=== PATIENT | female | born 1975 | race Two or more races ===

== ENCOUNTER → 2024-04-30 | Outpatient (CLI) | payer MEDICAID, SELFPAY ==
--- NOTE | 2024-04-30 14:30 | XR_ITS ---
Examination: Breast ultrasound, unilateral, right complete Date and time of exam: April 30 2024 1511 hours INDICATIONS: Lump in the right breast this month, history right breast sonogram August 12, 2023 suspicious mass 12:00 position right breast, nodule biopsied September 29, 2023, measuring 9 x 11 mm Technique: Real-time christianson scale ultrasonographic imaging performed right breast including all 4 quadrants as well as nipple retroareolar and axillary region. Findings: 9:00 oval mass 12 x 6 x 13 mm, breast biopsy marker, lobular margins IMPRESSION: BI-RADS Category 3: Probably benign findings One additional 6 month right breast sonogram follow-up is needed to document stability of nodule described above
--- NOTE | 2024-04-30 15:00 | XR_ITS ---
Examination: Diagnostic digital mammography, unilateral, right Computer aided detection 3-D breast Tomosynthesis, unilateral Date and time of exam: April 30, 2024 1536 hours INDICATIONS: Mammogram August 12, 2023 9:00 oval mass right breast indistinct margins 10 mm Technique: Nonmagnified MLO, CC views of the right breast have been obtained, reconstructed from 3-D Tomosynthesis images. R2 computer aided detection program utilized for evaluation of suspicious masses and/or abnormal calcifications. 3-D Tomosynthesis images obtained. Findings: The breast is heterogeneously dense, which may obscure small masses 14 mm oval mass on the right MLO view separate from the breast biopsy marker, 7.3 cm from the nipple Impression: BI-RADS category 0: Incomplete: Need additional imaging evaluation This patient should return for repeat right breast sonography with the radiologist in attendance
== END | disposition home or self-care (01) ==
LOC: CDIM 14:57
PROVIDERS: Referring Provider Nurse Practitioner Family; Visit Provider Nurse Practitioner Family
DX: N63.15 Unspecified lump in the right breast, overlapping quadrants (principal)
CPT/HCPCS: 76641; 77061; 77065; G0279

== ENCOUNTER → 2024-07-10 | Outpatient (CLI) | payer MEDICAID, SELFPAY ==
--- NOTE | 2024-07-10 11:30 | XR_ITS ---
Examination: Breast ultrasound, unilateral, right complete Date and time of exam: July 10, 2024 1205 hours INDICATIONS: Mammogram April 30, 2024 14 mm oval mass separate from the breast biopsy marker on the MLO view, 7.3 cm from the nipple Technique: Real-time christianson scale ultrasonographic imaging performed right breast including all 4 quadrants as well as nipple retroareolar and axillary region. Findings: 9:00 circumscribed nodule 10 x 7 mm 10:00 intramammary lymph node 11 x 8 mm IMPRESSION: BI-RADS Category 3: Probably benign findings Recommend 1 additional 6 month right breast sonogram follow-up to document stability of 9:00 nodule described above
== END | disposition home or self-care (01) ==
PROVIDERS: PCP Nurse Practitioner Family; Referring Provider Nurse Practitioner Family; Visit Provider Nurse Practitioner Family
DX: N63.15 Unspecified lump in the right breast, overlapping quadrants (principal)
CPT/HCPCS: 76641

== ENCOUNTER 2024-09-16 09:12 | Emergency (ER) | payer MEDICAID, SELFPAY ==
[2024-09-16 09:29] VITALS: BP 150/88; PULSE 64; RESP 18; TEMP 37.1; O2SAT 98; BMI 29.5
--- NOTE | 2024-09-16 09:41 | XR_ITS ---
Examination: CT abdomen and pelvis without contrast. Coronal 3-D reconstructions. Sagittal 2-D reconstructions. Date and time of exam:September 16, 2024 10:45 AM Comparison July 11, 2023 Indications: Right flank pain beginning 2 weeks ago CTDI: vol (mGy): 8.83 DLP: (mGycm): 453 Technique: Axial images of the abdomen have been obtained, 3 mm slice thickness Intravenous contrast material has not been administered. Low dose protocols were performed. One or more of the following dose reduction techniques were used; automated exposure control, adjustment of the mA and/or KV according to patient size, use of iterative reconstruction technique. Findings: Stable pulmonary nodule right lower lobe No visualized liver or splenic lesion Absent gallbladder No pancreatic mass No renal or ureteral calculi, no hydronephrosis Normal appendix Septated left pelvic cyst 5 cm Contracted urinary bladder Impression: No renal or ureteral calculi, no hydronephrosis Normal appendix Septated 5 cm left pelvic cyst, recommend pelvic sonography follow-up
--- NOTE | 2024-09-16 10:19 | PD.EDABDPN ---
ED Abdominal Pain RME/HPI General Chief Complaint: Abdominal Pain Stated complaint: RUQ ABD PAIN X 4DAYS Time seen by provider: 09/16/24 09:14 Arrival date/time: 09/16/24 09:12 This is a case of 48-year-old female who have history of cholecystectomy came in in the emergency room due to right-sided abdominal pain associated with nausea vomiting for 4 days worsening symptoms this patient decided to start consult here in the emergency room Source: patient Mode of arrival: ambulatory Limitations: no limitations Related Data Home Medications ?Medication ?Instructions ?Recorded ?Confirmed ibuprofen 800 mg tablet 800 mg PO DAILY PRN Pain 06/08/21 08/31/22 oxybutynin chloride 5 mg tablet 5 mg PO QDAY 06/08/21 08/31/22 pantoprazole 40 mg tablet,delayed 40 mg PO QDAY 06/08/21 08/31/22 release hydroxyzine HCl 10 mg tablet 10 mg PO HS 08/31/22 08/31/22 pentosan polysulfate sodium 100 mg 200 mg PO DAILY 08/31/22 08/31/22 capsule (Elmiron) Previous Rx's ?Medication ?Instructions ?Recorded diphenhydramine HCl 25 mg capsule 25 mg PO Q8H PRN allergic symptoms 10/01/22 (Benadryl) #30 caps ibuprofen 600 mg tablet 600 mg PO Q6H #30 tabs 10/01/22 ibuprofen 600 mg tablet 600 mg PO TID PRN pain #30 tabs 10/01/22 dicyclomine 20 mg tablet 20 mg PO TID PRN abdominal pain 09/16/24 #20 tabs ibuprofen 800 mg tablet 800 mg PO Q8H PRN pain #20 tabs 09/16/24 ondansetron 4 mg disintegrating 4 mg PO Q8H PRN nausea and 09/16/24 tablet vomiting #20 tabs Allergies Allergy/AdvReac Type Severity Reaction Status Date / Time codeine Allergy Severe Hives Verified 09/16/24 09:16 Review of Systems Review of Systems Systems Reviewed: All systems reviewed, normal except as documented Constitutional Constitutional: Reports system reviewed and no additional complaints, except as documented and Reports as per HPI ENT Ears, Nose, Mouth, and Throat: Denies dysphagia and Denies odynophagia Cardiovascular Cardiovascular: Reports system reviewed and no additional complaints, except as documented and Reports as per HPI Respiratory Respiratory: Reports system reviewed and no additional complaints, except as documented and Reports as per HPI Gastrointestinal Gastrointestinal: Reports system reviewed and no additional complaints, except as documented, Reports as per HPI, Reports abdominal pain, Denies belching, Denies bloating, Denies change in bowel habits, Denies change in stool character, Denies coffee ground emesis, Denies constipation, Denies cramping, Denies diarrhea, Denies dyspepsia, Denies dysphagia, Denies early satiety, Denies excessive flatus, Denies fecal incontinence, Denies heartburn, Denies hematemesis, Denies hematochezia, Denies loose stools, Denies melena, Reports nausea, Denies odynophagia, Denies tenesmus and Reports vomiting Genitourinary Genitourinary: Reports system reviewed and no additional complaints, except as documented and Reports as per HPI Musculoskeletal Musculoskeletal: Reports system reviewed and no additional complaints, except as documented and Reports as per HPI Neurologic Neurologic: Reports system reviewed and no additional complaints, except as documented and Reports as per HPI Past Medical History Past Medical History NEUROLOGIC: Negative Neurological Disorders or Seizures CARDIAC: Negative Cardiac Disorders, Congestive Heart Failure or Hypertension RESPIRATORY: Positive Pneumonia; Negative Chronic Obstructive Pulmonary Disease (COPD) or Asthma GASTROINTESTINAL: Positive Gastrointestinal Disorders, Gall Bladder Disease (CHOLECYSTECTOMY 2011), Hiatal Hernia and Gastroesophageal Reflux Disease GENITOURINARY: Positive Genitourinary Disorders (RENAL BIOPSY 11/08/18); Negative Renal Disease REPRODUCTIVE: Positive Previous Pregnancies () MUSCULOSKELETAL: Negative Musculoskeletal Disorders or Carpal Tunnel Syndrome ENDOCRINE: Negative Endocrine Disorders, Diabetes Mellitus Type 1 or Diabetes Mellitus Type 2 HEMATOLOGIC: Negative Blood Disorders, Anemia, Sickle Cell Disease or Clotting Problems PSYCHO/SOCIAL: Positive Anxiety OTHER HISTORY: Positive Hospitalization and Blood Transfusions; Negative Autoimmune Disease, Down Syndrome, Developmental Delay, Shingles, Falls, Blood Transfusion Reaction, Anesthesia Reactions, Organ Transplant, Chicken Pox or Cancer Family History FAMILY HISTORY: Positive Family Cardiac Disorders (MOTHER(HTN)) and Family Cancer (MOTHER(SKIN)/ SISTER(SKIN)); Negative Family Psychiatric Problems, Family Respiratory Disorders, Family Gastrointestinal Problems, Family Surgery or Family Anesthesia Reaction Surgical History SURGICAL: Positive Abdominal Surgery, Arthroscopy, Tubal Ligation (2011) and Section (X3); Negative Cardiac Surgery, Endocrine Surgery, Thyroidectomy, Ear Surgery, Nephrectomy, Neurologic Surgery, Brain Shunt, Mastectomy, Hysterectomy or Organ Transplant Social History SMOKING STATUS: Never smoker ED Exam General Limitations: Present no limitations General appearance: Present alert and in no apparent distress Head Head exam: Present atraumatic, normocephalic and normal inspection Eye Eye exam: Present normal appearance, PERRL and EOMI ENT ENT exam: Present normal exam, normal oropharynx and mucous membranes moist Neck Neck exam: Present normal inspection, full ROM and trachea midline Chest Chest inspection: Present normal inspection and symmetric chest wall rise Respiratory Respiratory exam: Present normal lung sounds bilaterally; Absent respiratory distress, wheezes, stridor, accessory muscle use or prolonged expiratory phase Cardiovascular Cardiovascular exam: Present regular rate, normal rhythm and normal heart sounds; Absent bradycardia, tachycardia, irregular rhythm or systolic murmur Abdominal Exam Abdominal exam: Present soft, tenderness (Mild to moderate tenderness right upper and right lower quadrant no guarding no rebound no rigidity) and normal bowel sounds; Absent distention, guarding, rebound, rigidity, diminished bowel sounds, hyperactive bowel sounds, hypoactive bowel sounds, organomegaly, trauma, incision, psoas sign, obturator sign, heel tap sign, Mccracken's sign, Rovsing's sign, tenderness at McBurney's Point, ascites or pulsatile mass Abdominal tenderness: Present RUQ, RLQ and mild Extremities Exam Extremities exam: Present normal inspection and full ROM Back Exam Back exam: Present normal inspection and full ROM Neurological Exam Neurological exam: Present alert, oriented X3, CN II-XII intact, normal gait and reflexes normal; Absent motor sensory deficit Psychiatric Psychiatric exam: Present normal affect and normal mood Skin Skin exam: Present warm, dry, intact and normal color Course Quality Measures none Orders Category Date Time Status CT abdomen pelvis wo con Stat Exams 09/16/24 09:41 Completed US pelvic complete Stat Exams 09/16/24 12:16 Completed CBC Stat Lab 09/16/24 10:04 Completed Comprehensive Metabolic Panel Stat Lab 09/16/24 10:04 Completed HCG Qualitative,Urine Stat Lab 09/16/24 10:20 Completed Lipase Stat Lab 09/16/24 10:04 Completed Urinalysis Stat Lab 09/16/24 10:20 Completed Ketorolac Inj [Toradol Inj] Med 09/16/24 14:04 Discontinued 30 mg IM X1 ONE Ondansetron Odt [Zofran Odt] Med 09/16/24 14:04 Discontinued 4 mg PO X1 ONE Vital Signs Vital signs: Vital Signs Temperature 98.8 F 09/16/24 09:29 Pulse Rate 64 09/16/24 09:29 Respiratory Rate 18 09/16/24 09:29 Blood Pressure 150/88 H 09/16/24 09:29 Pulse Oximetry (%) 98 09/16/24 09:29 Oxygen Delivery Method Room Air 09/16/24 09:29 Oxygen saturation is 98% in room air normal Abdominal Pain MDM MDM Narrative MDM Narrative:: This is a case of 48-year-old female who have history of cholecystectomy came in in the emergency room due to right-sided abdominal pain associated with nausea vomiting for 4 days worsening symptoms this patient decided to start consult here in the emergency room physical examination patient is awake alert oriented not in distress nontoxic looking patient is afebrile not tachycardic not tachypneic BP stable and nonhypoxic abdominal exam noted mild tenderness in the right upper and right lower quadrant no guarding no rebound no rigidity negative psoas negative straight or negative Rovsing's negative McBurney's negative Mccracken sign negative CVA tenderness blood test showed no leukocytosis no anemia kidney and liver function is normal no electrolyte imbalance lipase normal patient is not urinalysis normal CT scan showed a normal exam status postcholecystectomy normal appendix noted a pelvic cyst?ultrasound was ordered and noted to have patient have ovarian cyst on the left no signs and symptoms of ovarian torsion patient was given Toradol for pain and Zofran patient condition markedly improved abdominal pain is resolved patient will follow up with PCP in 2 days for reevaluation there is an incidental finding of pulmonary nodules this patient will follow-up with passenger car conductor for further evaluation and treatment and to rule out malignancy and patient will see OB patient care nursing assistant for ovarian cyst patient agreed with the treatment plan and discharge Patient was discharged with comfortable condition walking with stable gait. Patient verbalized no further complains explained diagnosis and answered patient question. Patient is comfortable with the proposed management plan including the need to follow up with his/her primary care physician and any specialist if applicable Discussed patient for any urgent condition or worsening sx, He/She needed to go to emergency room immediately or call 911. Patient acknowledge the responsibility to follow up as instructed and to monitor her/his symptoms. For any persistence of the symptoms for more than 3-5 days return precaution advised. Discussed the result of the test and was given printed discharge instruction Patient data External records reviewed:: [facility] previous records Clinical information provided by:: patient Social determinants that could affect healthcare access:: none Patient has the following chronic illnesses:: None How is presenting disease/condition affected by chronic disease/condition?: no chronic disease Evaluation data The following diagnostics were reviewed and interpreted by me:: lab results and radiology exam(s) Lab and/or radiology exams considered but not ordered:: Reviewed Interpretation Summary: Reviewed Medications / Prescriptions Medications or Prescriptions considered but not ordered:: Given Medication administrations:: Medication Administration History Discontinued Medications Ketorolac Tromethamine (Ketorolac Inj 60 Mg/2 Ml Vial) 30 mg IM X1 ONE Stop: 09/16/24 14:05 Ondansetron HCl (Ondansetron Odt 4 Mg Tabrap) 4 mg PO X1 ONE; Protocol Stop: 09/16/24 14:05 Given Consultations Consultation(s) initiated? (list below): No Diagnosis Differential diagnosis abdominal pain: abdominal pain, acute appendicitis and calculus of kidney Most likely diagnosis given after review of the tests above:: Ovarian cyst Admission Indicated Admission indicated?: not indicated Explain why admission is indicated or not indicated:: Not indicated Admission Request Was there a request for admission?: No Admission Attestation Admission request attestation: Not indicated Disposition Plan Disposition Plan: Discharge Discharge Attestation Discharge Attestation: The patient and all family members were given an opportunity to ask questions and understood the discharge instructions. Discharge instructions specifically effects, indications for sooner follow up or return to the emergency department, and the expected course of current diagnosis. Patient condition: Stable Discharge Plan Plan Patient Disposition: HOME (Self Care) Patient condition on transfer: Stable Prescriptions/Referrals Prescriptions/Med Rec: New ibuprofen 800 mg tablet 800 mg PO Q8H PRN (Reason: pain) Qty: 20 0RF dicyclomine 20 mg tablet 20 mg PO TID PRN (Reason: abdominal pain) Qty: 20 0RF ondansetron 4 mg tablet,disintegrating 4 mg PO Q8H PRN (Reason: nausea and vomiting) Qty: 20 0RF No Action ibuprofen 800 mg tablet 800 mg PO DAILY PRN (Reason: Pain) pantoprazole 40 mg tablet,delayed release (DR/EC) 40 mg PO QDAY oxybutynin chloride 5 mg tablet 5 mg PO QDAY Elmiron 100 mg capsule 200 mg PO DAILY hydroxyzine HCl 10 mg tablet 10 mg PO HS ibuprofen 600 mg tablet 600 mg PO TID PRN (Reason: pain) Qty: 30 0RF diphenhydramine HCl [Benadryl] 25 mg capsule 25 mg PO Q8H PRN (Reason: allergic symptoms) Qty: 30 0RF ibuprofen 600 mg tablet 600 mg PO Q6H Qty: 30 0RF Referrals: Katelyn Wren MD [Primary Care Provider] - In 1 week Problem List Clinical Impression: Abdominal pain, Ovarian cyst, Pulmonary nodule Patient/Caregiver Discharge Instructions Education Materials: Abdominal Pain, ED Ovarian Cyst, ED Pulmonary Nodule, Solitary Additional Instructions: Follow-up with your primary care physician in 2 days for reevaluation and to be referred to passenger car conductor for further evaluation and treatment of pulmonary nodule to rule out malignancy and to follow-up with the OB patient care nursing assistant for further evaluation and treatment of ovarian cyst worsening symptoms regardless of the symptoms persistence of the symptoms or any emergent concern return to the emergency room immediately or call 911 Print Language: Latvian Stand Alone Forms: Carla Award Info., Patient Portal Info Letter PA/OUTREACH CONSULTANT Supervising Physician PA/OUTREACH CONSULTANT Supervising Physician: dr alonzo
[2024-09-16 10:32] LABS: Basophils % (Auto) 1 % (0-2.5); Eosinophils # (Auto) 0.1 Thou/mm3 (0.0-0.5); Eosinophils % (Auto) 1 % (0-10); Hematocrit 40.4 % (36.0-46.0); Hemoglobin 13.9 g/dL (12.0-16.0); Immature Granulocytes % (Auto) 0 % (0-0); Immature Granulocytes Auto 0.02 Thou/mm3 (0.00-0.00); Lymphocytes # (Auto) 1.3 Thou/mm3 (1.0-4.8); Lymphocytes % (Auto) 22 % (10-50); Mean Corpuscular HGB Conc 34.4 g/dl (31.0-37.0); Mean Corpuscular Hemoglobin 30.4 pg (25.0-35.0); Mean Corpuscular Volume 88 fL (80-100); Monocytes # (Auto) 0.4 Thou/mm3 (0.0-0.8); Monocytes % (Auto) 8 % (0-12); Neutrophils # (Auto) 3.8 Thou/mm3 (1.8-7.7); Neutrophils % (Auto) 68 % (37-80); Nucleated Red Blood Cell % 0 /100 WBC (0); Platelet Count 222 Thou/mm3 (140-440); RDW Standard Deviation 38.7 fL (36.4-46.3); Red Blood Count 4.57 Miln/mm3 (4.00-5.20); White Blood Count 5.6 Thou/mm3 (3.6-11.0)
[2024-09-16 10:56] LABS: Collection Type, Urine Clean Catch
[2024-09-16 10:59] LABS: Alanine Aminotransferase 14 U/L (10-49); Albumin, Serum 4.7 gm/dL (3.5-5.0); Albumin/Globulin Ratio 1.7 (1.2-2.2); Alkaline Phosphatase 105 U/L (46-116); Anion Gap 9 (7-16); Aspartate Amino Transferase 17 U/L (0-34); BUN/Creatinine Ratio 11 Ratio (12-20); Blood Urea Nitrogen 8 mg/dL (9-23); Calcium 9.6 mg/dL (8.3-10.6); Calcium (Corrected) 9.6 mg/dL (8.5-10.1); Carbon Dioxide 25.4 mMol/L (20.0-31.0); Chloride 107 mMol/L (98-107); Creatinine (Component) 0.7 mg/dL (0.6-1.3); Estimated Creatinine Clearance 83.1 mL/min (>60); Globulin 2.7 gm/dL (2.3-3.5); Glucose 100 mg/dL (74-106); Lipase 25 U/L (12-53); Osmolality,Calculated 279 (275-295); Potassium 3.7 mMol/L (3.4-5.1); Sodium 141 mMol/L (136-145); Total Protein 7.4 gm/dL (5.7-8.2); eGFR > 60 See Note
[2024-09-16 11:04] LABS: Bilirubin,Urine Negative (Negative); Blood,Urine Negative (Negative); Clarity,Urine Clear (Clear/Hazy); Color,Urine Yellow (Lt Yel-Yel); Glucose, Urine Negative (Negative); Ketones,Urine Negative (Negative); Leukocyte Esterase,Urine Negative (Negative); Nitrite,Urine Negative (Negative); PH,Urine 6.5 (5.0-7.0); Protein,Urine Trace (Neg - Trace); RBC,Urine 1 /hpf (0-3); Specific Gravity,Urine 1.025 (1.001-1.035); Squamous Epithelial Cell,Urine 2 /hpf (0-5); Urobilinogen,Urine Negative mg/dL (0.0-1.0); WBC,Urine < 1 /hpf (0-5)
[2024-09-16 11:05] LABS: HCG Qualitative,Urine Negative
--- NOTE | 2024-09-16 12:16 | XR_ITS ---
Examination: Pelvic ultrasound, transabdominal, complete Technique: Transabdominal ultrasound of the pelvis performed using grayscale imaging Date and time of exam: September 16, 2024 1335 hrs. Indications: Pelvic pain beginning 2 weeks ago Findings: Absent uterus Right ovary not seen Left ovary 3.2 cm arterial flow 25 x 19 x 22 mm cyst Impression: Limited study (Simple cyst 25 x 19 x 22 mm, left ovary
[2024-09-16] MEDS: ONDANSETRON ODT 4 MG TABRAP PO (15:15)
[2024-09-16] MEDS: KETOROLAC INJ 60 MG/2 ML VIAL 30 MG IM (15:15)
== END 2024-09-16 15:52 | disposition home or self-care (01) ==
PROVIDERS: Nurse Practitioner Family; Emergency Provider Emergency Medicine; PCP Obstetrics & Gynecology
DX: N83.292 Other ovarian cyst, left side (principal); R91.1 Solitary pulmonary nodule
CPT/HCPCS: 36415; 74176; 76856; 80053; 81001; 81025; 83690; 85025; 96372; 99284; J1885; Q0162

== ENCOUNTER → 2025-01-17 | Outpatient (CLI) | payer MEDICAID, SELFPAY ==
--- NOTE | 2025-01-17 16:00 | XR_ITS ---
Examination: Breast ultrasound, unilateral, right Date and time of exam: January 17, 2025, 1619 hours INDICATIONS: Right breast sonogram July 10, 2024 9:00 nodule 10 mm, history negative right breast biopsy, family history of breast carcinoma Technique: Real-time christianson scale ultrasonographic imaging performed right breast including all 4 quadrants as well as nipple retroareolar and axillary region. Findings: 9:00 circumscribed nodule 6 x 5 mm IMPRESSION: BI-RADS Category 2: Benign findings
== END | disposition home or self-care (01) ==
LOC: CDIM 15:47
PROVIDERS: PCP Nurse Practitioner Family; Referring Provider Nurse Practitioner Family; Visit Provider Nurse Practitioner Family
DX: R92.8 Other abnormal and inconclusive findings on diagnostic imaging of breast (principal); Z80.3 Family history of malignant neoplasm of breast
CPT/HCPCS: 76641